=== PATIENT | female | born 1975 | race Caucasian/White ===

== ENCOUNTER → 2023-10-10 | Emergency (ER) | payer SELFPAY ==
[~2023-10-10] MED LIST: CEFTRIAXONE 1000 MG/VIAL ONE; NS 0.9% VIAL 10 ML ONE; dexAMETHasone 10 MG/ML VIAL ONE
[2023-10-10 19:54] LABS: Absolute Basophils 0.1 K/uL (0-0.5); Absolute Eosinophils 0.2 K/uL (0-0.5); Absolute Lymphocytes (CBC) 1.7 K/uL (0.7-4.9); Absolute Monocytes 0.4 K/uL (0.1-1.3); Absolute Neutrophil 3.5 K/uL (1.8-8.0); Basophils % 1.4 % (0-1.3); Hematocrit 30.9 % (36.0-45.0); Hemoglobin 9.4 g/dL (12.0-15.0); Lymphocytes % 29.5 % (15.3-44.8); MCH 21.8 pg (27.0-35.0); MCHC 30.4 g/dL (32.0-36.0); MCV 71.7 fL (80-100); MPV 7.5 fL (7.6-11.3); Monocytes % 6.1 % (3.3-12.3); Nucleated Red Blood Cells % 0.1 % (0-0); Platelets 386 thou/uL (152-406); RBC Red Blood Cell Count 4.31 M/uL (3.86-4.86); Red Cell Distribution Width 16.6 % (12.1-15.2)
[2023-10-10 20:06] LABS: Anion Gap 10.1 mEq/L (5.0-15.0); Potassium 3.1 mEq/L (3.5-5.1)
--- NOTE | 2023-10-10 20:51 | RAD REPORT ---
EXAM DESCRIPTION: CT - Soft Tissue Neck W/Contr CLINICAL HISTORY: neck swelling COMPARISON: No comparisons TECHNIQUE: Thin axial CT images of the neck, performed following intravenous administration of iodi nated contrast. Multiplanar reformats were generated and reviewed. All CT scans are performed using dose optimization technique as appropriate and may include automated exposure control or mA/KV adjustment according to patient size. FINDINGS: Asymmetric enlargement and hyperenhancement of the right submandibular gland. Less pronoun neha asymmetric mild hyperenhancement and enlargement of the right superficial parotid gland. Adjacent soft tissue swelling, mild fat stranding and overlying platysmal thickening most pronounced along th e right submandibular triangle, with similar fat stranding extending along the right strap muscles. N o appreciable calculi or ductal dilation. Small bilateral hyperenhancing parotid lesions, largest on the right is situated anteriorly, and on t he left situated inferiorly measuring 10-11 mm on both sides. Mild asymmetric fullness and minimal fat stranding along the submucosal spaces at the level of the ri ght vallecula, right supraglottic larynx including the right aryepiglottic fold. No appreciable abnor mal fluid collections. Asymmetric mildly pronounced lymph nodes throughout the right deep neck spaces, likely reactive. Nasopharyngeal tissues are normal in appearance. Fossa Rosenmller are normal. Parapharyngeal fat triangles are symmetric. Tongue base structures are normal. Epiglottis is unremarkable. Trace air-fluid levels within the maxillary sinuses bilaterally. Upper lung cruz are clear. Included intracranial contents are unremarkable. IMPRESSION: Inflammatory changes centered on the right submandibular triangle, involving the right s ubmandibular gland and to lesser extent the right superficial parotid lobe. Similar findings extend a long the right strap muscles as well as the sub mucosal spaces of the right vallecula and supraglotti c larynx including the right aryepiglottic fold. Findings suggest sialoadenitis with mild right supra glottitis. No appreciable abnormal fluid collections or sialoliths.
[2023-10-10 20:55] LABS: Blood Morphology Comment NOT SEEN (NOT SEEN); Platelet Estimate ADEQ; White Blood Cell Scan OK (OK)
--- NOTE | 2023-10-10 21:09 | EDPHYS ---
Physician Documentation [facility] Name: Linh Hair Age: 48 yrs Sex: Female : 1975 Arrival Date: 10/10/2023 Time: 17:59 Bed DX3 Private MD: ED Physician Margarita Amin HPI: 10/09 21:46 This 48 yrs old Female presents to ER via Ambulatory with complaints of Flu Symptoms. kb 21:46 Patient is a 48-year-old female who presents for cough, body aches, burning to her kb chest, rhinorrhea, fever for 1 week. States she woke up today with swelling to the right side of her neck. Denies shortness of breath.. 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 - Social history:: Smoking status: Reported history of juuling and/or vaping. ROS: 21:44 Constitutional: As per HPI kb Exam: 21:44 Constitutional: This is a well developed, well nourished patient who is awake, alert, kb and in no acute distress. Head/Face: Normocephalic, atraumatic. ENT: Moist Mucous membranes Cardiovascular: Regular rate Respiratory: Respirations even and unlabored. No increased work of breathing. Talking in full sentences Abdomen/GI: Soft, non-tender. No distention Skin: Warm, dry with normal turgor. Normal color. MS/ Extremity: Pulses equal, no cyanosis. Neurovascular intact. Full, normal range of motion. Neuro: Awake and alert, GCS 15, oriented to person, place, time, and situation. Moves all extremities. Normal gait. 21:44 Neck: External neck: swelling, that is mild, that is moderate, of the right submandibular area, tenderness, that is mild, of the right submandibular area, Vital Signs: 18:13 BP 162 / 98; Pulse 103; Resp 18; Temp 99.4(O); Pulse Ox 98% on R/A; Weight 99.79 kg; hb Height 5 ft. 5 in. ; Pain 5/10; 18:13 Body Mass Index 36.61 (99.79 kg, 165.1 cm) hb 18:13 Pain Scale: Adult hb MDM: 18:03 Patient medically screened. kb 21:45 Differential diagnosis: Flu, COVID, strep, abscess. Data reviewed: vital signs, nurses kb notes. Management of patient was discussed with the following: Dr Hylton recommends steroids and antibiotics with outpatient follow up with ENT. Counseling: I had a detailed discussion with the patient and/or guardian regarding the historical points, exam findings, and any diagnostic results supporting the discharge/admit diagnosis, lab results, radiology results, the need for outpatient follow up, an ENT specialist, a family practitioner, to return to the emergency department if symptoms worsen or persist or if there are any questions or concerns that arise at home. 10/09 18:14 Order name: Flu; Complete Time: 20:48 kb 10/09 18:14 Order name: COVID-19 SARS RT PCR; Complete Time: 20:26 kb 10/09 18:14 Order name: BMP; Complete Time: 20:06 kb 10/09 18:14 Order name: CBC with Diff; Complete Time: 20:57 kb 10/09 18:14 Order name: Strep; Complete Time: 20:48 kb 10/09 20:48 Order name: Throat Culture EDMS 10/09 20:55 Order name: CBC Smear Scan; Complete Time: 20:57 EDMS 10/09 18:14 Order name: Chest Single View XRAY kb 10/09 18:14 Order name: CT Soft Tissue Neck W/contr; Complete Time: 20:52 kb 10/09 18:14 Order name: IV Start; Complete Time: 19:48 kb Administered Medications: 21:13 CANCELLED (Duplicate Order): dexamethasone 10 mg IM once cm10 21:22 Drug: Decadron - Dexamethasone IVP 10 mg IVP once Route: IVP; Site: right forearm; cm10 21:24 Drug: Rocephin IV 1 grams IV at calculated rate once; Given slow IV push per pharmacy cm10 instructions Route: IV; Rate: calculated rate; Site: right forearm; Disposition Summary: 10/10/23 21:09 Discharge Ordered Notes: Location: Home kb Condition: Stable kb Diagnosis - Sialoadenitis kb - Supraglottitis kb Followup: kb - With: Emergency Department - When: As needed - Reason: Worsening of condition Followup: kb - With: Private Physician - When: 2 - 3 days - Reason: Recheck today's complaints, Continuance of care, Re-evaluation by your physician Discharge Instructions: - Discharge Summary Sheet kb - Salivary Gland Infection kb Forms: - Medication Reconciliation Form kb - Thank You Letter kb - Antibiotic Education kb - Prescription Opioid Use kb - Patient Portal Instructions kb - Leadership Thank You Letter kb Prescriptions: - Augmentin 875-125 mg Oral Tablet - take 1 tablet ORAL route every 12 hours for 10 days; 20 tablet; Refills: 0, kb Product Selection Permitted - Prednisone 20 mg Oral Tablet - take 1 tablet ORAL route once daily for 5 days; 5 tablet; Refills: 0, Product kb Selection Permitted Signatures: Dispatcher [employer] EDMS Karina Ling FNP-C FNP-Ckb Baxter, Heather, RN RN hb Martinez, Clarissa, RN RN cm10 Corrections: (The following items were deleted from the chart) 18:16 18:15 Home Meds: none; hb hb 18:16 18:15 PSHx: Cholecystectomy; hb hb 21:13 21:04 Dexamethasone IM 10 mg IM once ordered. tiffani cm10
--- NOTE | 2023-10-10 21:09 | ER ---
Nurse's Notes [facility] Name: Linh Hair Age: 48 yrs Sex: Female : 1975 Arrival Date: 10/10/2023 Time: 17:59 Bed DX3 Private MD: Diagnosis: Sialoadenitis;Supraglottitis Presentation: 10/09 18:13 Chief complaint: Cough, congestion, burning chest, sore throat, fever, and body aches x hb 1 week, right sided neck swelling today. Coronavirus screen: At this time, the client does not indicate any symptoms associated with coronavirus-19. Ebola Screen: No symptoms or risks identified at this time. Initial Sepsis Screen: Does the patient meet any 2 criteria? No. Patient's initial sepsis screen is negative. Does the patient have a suspected source of infection? No. Patient's initial sepsis screen is negative. Risk Assessment: Do you want to hurt yourself or someone else? Patient reports no desire to harm self or others. Onset of symptoms was October 03, 2023. 18:13 Method Of Arrival: Ambulatory hb 18:13 Acuity: SASCHA 3 hb Triage Assessment: 18:15 General: Appears in no apparent distress. Behavior is calm, cooperative. Pain: Pain hb currently is 5 out of 10 on a pain scale. EENT: right sided neck swelling noted. Reports sore throat. Neuro: Level of Consciousness is awake, alert, obeys commands, Oriented to person, place, time, situation. Cardiovascular: Patient's skin is warm and dry. Respiratory: Reports shortness of breath cough that is non-productive, Respiratory effort is even, unlabored, Respiratory pattern is regular, symmetrical. Musculoskeletal: Reports body aches. 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 - Social history:: Smoking status: Reported history of juuling and/or vaping. Screenin:36 [facility] ED Fall Risk Assessment (Adult) History of falling in the last 3 months, jb4 including since admission No falls in past 3 months (0 pts) Confusion or Disorientation No (0 pts) Intoxicated or Sedated No (0 pts) Impaired Gait No (0 pts) Mobility Assist Device Used No (0 pt) Altered Elimination No (0 pt) Score/Fall Risk Level 0 - 2 = Low Risk Oriented to surroundings, Maintained a safe environment. Abuse screen: Denies threats or abuse. Nutritional screening: No deficits noted. Tuberculosis screening: No symptoms or risk factors identified. Assessment: 19:48 Reassessment: Patient appears in no apparent distress at this time. Patient and/or hb family updated on plan of care and expected duration. Pain level reassessed. Patient is alert, oriented x 3, equal unlabored respirations, skin warm/dry/pink. 21:36 Reassessment: Patient appears in no apparent distress at this time. Patient and/or jb4 family updated on plan of care and expected duration. Pain level reassessed. Patient is alert, oriented x 3, equal unlabored respirations, skin warm/dry/pink. Vital Signs: 18:13 BP 162 / 98; Pulse 103; Resp 18; Temp 99.4(O); Pulse Ox 98% on R/A; Weight 99.79 kg; hb Height 5 ft. 5 in. ; Pain 5/10; 18:13 Body Mass Index 36.61 (99.79 kg, 165.1 cm) hb 18:13 Pain Scale: Adult hb ED Course: 18:01 Patient arrived in ED. im 18:02 [facility] kb 18:02 Margarita Amin MD is Attending Physician. kb 18:15 Triage completed. hb 18:15 Arm band placed on. hb 19:48 Provided Education on: tests, result times. hb 19:48 Initial lab(s) drawn, by [facility], sent to lab. COVID swab sent to lab. Flu and/or RSV swab hb sent to lab. Strep swab sent to lab. Inserted saline lock: 22 gauge in right forearm, using aseptic technique. Blood collected. 19:48 Strep Sent. hb 19:48 CBC with Diff Sent. hb 19:48 BMP Sent. hb 19:48 COVID-19 SARS RT PCR Sent. hb 19:48 Flu Sent. hb 19:52 PO fluids given. hb 20:28 CT Soft Tissue Neck W/contr In Process Unspecified. EDMS 21:09 Chest Single View XRAY In Process Unspecified. EDMS 21:36 Patient has correct armband on for positive identification. jb4 21:36 No provider procedures requiring assistance completed. IV discontinued, intact, jb4 bleeding controlled, No redness/swelling at site. Pressure dressing applied. Administered Medications: 21:13 CANCELLED (Duplicate Order): dexamethasone 10 mg IM once cm10 21:22 Drug: Decadron - Dexamethasone IVP 10 mg IVP once Route: IVP; Site: right forearm; cm10 21:24 Drug: Rocephin IV 1 grams IV at calculated rate once; Given slow IV push per pharmacy cm10 instructions Route: IV; Rate: calculated rate; Site: right forearm; Medication: 21:36 VIS not applicable for this client. jb4 Outcome: 21:09 Discharge ordered by . kb 21:36 Discharged to home ambulatory, jb4 21:36 Condition: stable 21:36 Discharge instructions given to patient, Instructed on discharge instructions, follow up and referral plans. medication usage, Demonstrated understanding of instructions, follow-up care, medications, Prescriptions given X 2, 21:36 Patient left the ED. jb4 Signatures: Dispatcher [employer] EDMS Karina Ling, UPPER MARKER-C UPPER MARKER-Ckb Alice Mayers, RN RN Aly Nair, RN RN jb4 Rubina Calix Clarissa, RN RN cm10 Corrections: (The following items were deleted from the chart) 18:16 18:15 Home Meds: none; hb hb 18:16 18:15 PSHx: Cholecystectomy; hb hb
--- NOTE | 2023-10-10 21:48 | RAD REPORT ---
EXAM DESCRIPTION: [place] Single View10/10/2023 9:07 pm CLINICAL HISTORY: COUGH COMPARISON: No comparisons TECHNIQUE: Portable AP view of the chest. FINDINGS: The lungs are clear. No pneumothorax or effusion. The cardiomediastinal contours are unre markable. IMPRESSION: No acute cardiopulmonary process.
[2023-10-10 21:54] VITALS: BP 162/98; TEMP 99.4; O2SAT 98
== END ==
LOC: ER 17:59
DX: K11.20 Sialoadenitis, unspecified (principal); J04.30 Supraglottitis, unspecified, without obstruction; Z11.52 Encounter for screening for COVID-19
CPT/HCPCS: 36415; 70491; 71045; 80048; 85025; 87070; 87081; 87635; 87804; 96374; 96375; 99284; A4216; J0696; J1100; Q9967